=== PATIENT | female | born 1970 | race Two or more races ===

== ENCOUNTER 2018-12-20 12:16 | Outpatient (CLI) | payer OTHER | END 2018-12-20 13:43 | disposition home or self-care (01) | LOC: RAD 12:16 | DX: J06.9 Acute upper respiratory infection, unspecified (principal); J20.8 Acute bronchitis due to other specified organisms ==

== ENCOUNTER 2018-12-20 14:19 | Outpatient (CLI) | payer OTHER | END 2018-12-20 17:38 | disposition home or self-care (01) | LOC: LAB 14:19 | DX: A64 Unspecified sexually transmitted disease (principal); Z11.4 Encounter for screening for human immunodeficiency virus [HIV] ==

== ENCOUNTER 2019-04-06 13:27 | Outpatient (CLI) | payer OTHER | END 2019-04-06 13:38 | disposition home or self-care (01) | LOC: SONOGRAMA 13:27 | DX: N92.5 Other specified irregular menstruation (principal) ==